=== PATIENT | female | born 1950 | race Caucasian/White ===

== ENCOUNTER 2022-05-16 04:03 | Emergency (ER) | payer MEDICARE, OTHER ==
[2022-05-16 04:13] VITALS: TEMP 98.1
--- NOTE | 2022-05-16 04:41 | XR ---
EXAMINATION TYPE: XR knee limited RT DATE OF EXAM: 05/16/2022 COMPARISON: NONE HISTORY: Swelling TECHNIQUE: 2 views FINDINGS: There is a large knee joint effusion. No fracture seen. There is minor spurring of the medi al femoral and tibial condyles. IMPRESSION: There is large knee joint effusion. No fracture seen.
[2022-05-16] MEDS ORDERED: LIDOCAINE 1% INJ 10MG/ML (30 ML VIAL-PF) SQ ONE (04:51)
[2022-05-16] MEDS ORDERED: KETOROLAC 15 MG/ML 1 ML VIAL IM STA (04:51)
--- NOTE | 2022-05-16 06:28 | ED ---
General Adult HPI - General Source: patient Mode of arrival: wheelchair Limitations: no limitations <Leopoldo Saleem - Last Filed: 05/16/22 06:23> <Gee Jon - Last Filed: 05/16/22 09:42> - General Chief complaint: Extremity Problem,Nontraumatic Stated complaint: R knee pain Time Seen by Provider: 05/16/22 04:27 - History of Present Illness Initial comments: This is a 72-year-old female with a past medical history including CHF and hypertension as well as atrial fibrillation on Xarelto presented for a spo ntaneous right knee effusion and swelling. The patient stated that she did have some minor pain in the right knee prior to going to bed but then woke up with swelling and pain to the right knee unable to cannulate secondary to this pain and swelling. The patient denied any trauma. The patient also denied any fevers and chills and stated that she could not move her leg secondary to pain and swelling. The patient stated that she has never had anything similar to this in the past. The patient denied any other acute pain at this time. (Leopoldo Saleem) - Related Data Allergies Allergy/AdvReac Type Severity Reaction Status Date / Time Penicillins Allergy Unknown Verified 05/16/22 04:08 tramadol Allergy Nausea & Verified 05/16/22 04:08 Vomiting Review of Systems ROS Other: All systems not noted in ROS Statement are negative. <Leopoldo Saleem - Last Filed: 05/16/22 06:23> ROS Other: All systems not noted in ROS Statement are negative. <Gee Jon - Last Filed: 05/16/22 09:42> ROS Statement: Those systems with pertinent positive or pertinent negative responses have been documented in the HPI. Past Medical History Past Medical History: Hypertension Additional Past Medical History / Comment(s): heart failure, sarcoidosis, ALD, Factor 5 History of Any Multi-Drug Resistant Organisms: None Reported Past Surgical History: AICD, Joint Replacement, Orthopedic Surgery Smoking Status: Former smoker Past Alcohol Use History: None Reported Past Drug Use History: None Reported <Leopoldo Saleem - Last Filed: 05/16/22 06:23> General Exam Limitations: no limitations General appearance: alert, in no apparent distress Head exam: Present: atraumatic, normocephalic, normal inspection Eye exam: Present: normal appearance, PERRL Pupils: Present: normal accommodation ENT exam: Present: normal exam, normal oropharynx, mucous membranes moist Neck exam: Present: normal inspection Respiratory exam: Present: normal lung sounds bilaterally Cardiovascular Exam: Present: regular rate, normal rhythm, normal heart sounds GI/Abdominal exam: Present: soft, normal bowel sounds Extremities exam: Present: normal inspection (Normal inspection of the left knee), joint swelling (Joint swelling noted over the right knee without any erythema or induration noted.) Back exam: Present: normal inspection, full ROM Neurological exam: Present: alert, oriented X3, CN II-XII intact Psychiatric exam: Present: normal affect, normal mood Skin exam: Present: warm, dry <Leopoldo Saleem - Last Filed: 05/16/22 06:23> Course <Leopoldo Saleem - Last Filed: 05/16/22 06:23> Vital Signs 05/16/22 04:09 Temperature 98.1 F Pulse Rate 79 Respiratory 16 Rate Blood Pressure 154/112 O2 Sat by Pulse 98 Oximetry - Reevaluation(s) Reevaluation #1: The patient was seen and evaluated initially. X-ray of the right knee was obtained and was interpreted by myself showing large effusion. I did attempt multiple times to drain the fluid blindly however was unsuccessful. I then used the ultrasound and did show no drainable pocket of fluid. Because there was no drainable pocket in the setting of spontaneous swelling of the right knee, a CT was ordered at this time. The patient be sent out to Dr. Jon pending the evaluation of CT for further disposition and management. 05/16/22 06:27 (Leopoldo Saleem) Procedures - Joint Aspiration/Injection Consent Obtained: verbal consent Indications: to relieve pressure/pain Side of Body: right Joint Aspirated: knee Ultrasound Guidance: No (Initially, US was not used as there was a large effusion noted) Skin Prep: sterile prep and drape Local Anesthesia Used: Lidocaine 1% Amount of Anesthesia Used (mLs): 5 Needle Size Used: 22G Syringe Size Used: 10cc Fluid Obtained: bloody (minimal) Total Fluid Obtained (mls): 0 Patient Tolerated Procedure: no complications Complications: other (Patient had multiple times to drain the effusion however was unsuccessful. Ultrasound guidance was then used but showed no drainable pockets) <Leopoldo Saleem - Last Filed: 05/16/22 06:23> Medical Decision Making - Lab Data Result diagrams: 05/16/22 07:23 05/16/22 07:23 <Gee Jon - Last Filed: 05/16/22 09:42> - Medical Decision Making Was pt. sent in by a medical professional or institution (, [facility], [facility], urgent care, hospital, or custodial...) When possible be specific @ -No Did you speak to anyone other than the patient for history (EMS, parent, family, police, friend...)? What history was obtained from this source @ -No Did you review nursing and triage notes (agree or disagree)? Why? @ -I reviewed and agree with nursing and triage notes Were old charts reviewed (outside hosp., previous admission, EMS record, old EKG, old radiological studies, urgent care reports/EKG's, custodial records)? Report findings @ -No old charts were reviewed Differential Diagnosis (chest pain, altered mental status, abdominal pain women, abdominal pain men, vaginal bleeding, weakness, fever, dyspnea, syncope, headache, dizziness, GI bleed, back pain, seizure, CVA, palpatations, mental health)? @ -not applicable EKG interpreted by me (3pts min.). @ -As above X-rays interpreted by me (1pt min.). @ -CT was interpreted by myself. X-ray of the knee showed no fracture however did show an effusion. CT interpreted by me (1pt min.). @ -CT of the knee was interpreted by myself. CT of the knee showed an effusion which was consistent with blood U/S interpreted by me (1pt. min.). @ -None done What testing was considered but not performed or refused? (CT, X-rays, U/S, labs)? Why? @ -None What meds were considered but not given or refused? Why? @ -None Did you discuss the management of the patient with other professionals (professionals i.e. , [facility], [facility] [employer], lab, RT, psych nurse, dialysis social worker, spring winder, teacher, employment security officer, disability case manager)? Give summary @ -Spoke with Dr. Rich about the case he wanted the patient follow-up in the office I then spoke with the patient and they were in agreement Was smoking cessation discussed for >3mins.? @ -No Was critical care preformed (if so, how long)? @ -No Were there social determinants of health that impacted care today? How? (Homelessness, low income, unemployed, alcoholism, drug addiction, transportation, low edu. Level, literacy, decrease access to med. care, fdc, rehab)? @ -No Was there de-escalation of care discussed even if they declined (Discuss DNR or withdrawal of care, Hospice)? DNR status @ -No What co-morbidities impacted this encounter? (DM, HTN, Smoking, COPD, CAD, Cancer, CVA, ARF, Chemo, Hep., AIDS, mental health diagnosis, sleep apnea, morbid obesity)? @ -Patient has a clotting disorder and that is why she is on Xarelto and Xarelto has probably led her to have the spontaneous bleeding in the knee. Was patient admitted / discharged? Hospital course, mention meds given and route, prescriptions, significant lab abnormalities, going to OR and other pertinent info. @ -Patient be discharged home. I spoke with Dr. Rich he wants to see the patient in the office this week family was in agreement that she would beats able to safely get around the home and the patient was in agreement. Undiagnosed new problem with uncertain prognosis? @ -No Drug Therapy requiring intensive monitoring for toxicity (Heparin, Nitro, Insulin, Cardizem)? @ -No Were any procedures done? @ -No Diagnosis/symptom? @ -Knee Acute, or Chronic, or Acute on Chronic? @ -Acute Uncomplicated (without systemic symptoms) or Complicated (systemic symptoms)? @ -Uncomplicated Side effects of treatment? @ -No Exacerbation, Progression, or Severe Exacerbation? @ -No Poses a threat to life or bodily function? How? (Chest pain, [place], [place], pneumonia, PE, COPD, DKA, ARF, appy, cholecystitis, CVA, Diverticulitis, Homicidal, Suicidal, threat to staff... and all critical care pts) @ -No (Gee Jon) - Lab Data Lab Results 05/16/22 05/16/22 Range/Units 07:23 07:23 WBC 7.0 (3.8-10.6) k/uL RBC 5.11 (3.80-5.40) m/uL Hgb 16.0 (11.4-16.0) gm/dL Hct 48.7 H (34.0-46.0) % MCV 95.2 (80.0-100.0) fL MCH 31.3 (25.0-35.0) pg MCHC 32.8 (31.0-37.0) g/dL RDW 13.6 (11.5-15.5) % Plt Count 195 (150-450) k/uL MPV 9.2 Neutrophils % 67 % Lymphocytes % 25 % Monocytes % 4 % Eosinophils % 2 % Basophils % 1 % Neutrophils # 4.7 (1.3-7.7) k/uL Lymphocytes # 1.7 (1.0-4.8) k/uL Monocytes # 0.3 (0-1.0) k/uL Eosinophils # 0.2 (0-0.7) k/uL Basophils # 0.1 (0-0.2) k/uL Hypochromasia Slight Sodium 138 (137-145) mmol/L Potassium 4.7 (3.5-5.1) mmol/L Chloride 107 (98-107) mmol/L Carbon Dioxide 26 (22-30) mmol/L Anion Gap 5 mmol/L BUN 27 H (7-17) mg/dL Creatinine 1.06 H (0.52-1.04) mg/dL Est GFR (CKD-EPI)AfAm 60 (>60 ml/min/1.73 sqM) Est GFR (CKD-EPI)NonAf 52 (>60 ml/min/1.73 sqM) Glucose 95 (74-99) mg/dL Calcium 9.0 (8.4-10.2) mg/dL Magnesium 2.4 H (1.6-2.3) mg/dL Total Bilirubin 0.9 (0.2-1.3) mg/dL AST 58 H (14-36) U/L ALT 48 H (4-34) U/L Alkaline Phosphatase 188 H (38-126) U/L Total Protein 7.4 (6.3-8.2) g/dL Albumin 4.2 (3.5-5.0) g/dL Disposition <Leopoldo Saleem - Last Filed: 05/16/22 06:23> Is patient prescribed a controlled substance at d/c from ED?: No Time of Disposition: 09:41 <Gee Jon - Last Filed: 05/16/22 09:42> Clinical Impression: Knee effusion, left Disposition: HOME SELF-CARE Condition: Good Instructions (If sedation given, give patient instructions): Swollen Knee Joint (ED) Additional Instructions: Patient should use a walker to get around. And if necessary assistance from family members Referrals: Noe Rich MD [STAFF PHYSICIAN] - 1-2 days
[2022-05-16 07:29] LABS: Basophils # (A) 0.1 k/uL (0-0.2); Basophils % (A) 1 %; Eosinophils # (A) 0.2 k/uL (0-0.7); Eosinophils % (A) 2 %; HCT 48.7 % (34.0-46.0); Hypochromasia Slight; Lymphocytes # (A) 1.7 k/uL (1.0-4.8); Lymphocytes % (A) 25 %; MCH 31.3 pg (25.0-35.0); MCHC 32.8 g/dL (31.0-37.0); MCV 95.2 fL (80.0-100.0); Mean Platelet Volume 9.2; Monocytes # (A) 0.3 k/uL (0-1.0); Monocytes % (A) 4 %; Neutrophils # (A) 4.7 k/uL (1.3-7.7); Neutrophils % (A) 67 %; Platelet Count 195 k/uL (150-450); RBC 5.11 m/uL (3.80-5.40); RDW 13.6 % (11.5-15.5)
[2022-05-16 07:41] LABS: Albumin 4.2 g/dL (3.5-5.0); Total Bilirubin 0.9 mg/dL (0.2-1.3); Total Protein 7.4 g/dL (6.3-8.2)
[2022-05-16 07:43] LABS: Potassium 4.7 mmol/L (3.5-5.1)
[2022-05-16 07:44] LABS: Magnesium 2.4 mg/dL (1.6-2.3)
--- NOTE | 2022-05-16 08:22 | CT ---
EXAMINATION TYPE: CT knee RT wo/w con CT DLP: 280.6 mGycm, Automated exposure control for dose reduction was used. DATE OF EXAM: 05/16/2022 8:10 AM COMPARISON: Extremity radiograph same day. CLINICAL INDICATION:Female, 72 years old with history of Swelling, effusion without drainable fluid o n US, Swelling, Effusion without drainable fluid on US TECHNIQUE: Axial images were obtained of the right knee . Additional coronal and sagittal reformatte d images and soft tissue and bone window were obtained for review. Contrast used:100 ml mL of Isovue 300 without and with IV Contrast, Oral contrast used: None FINDINGS: High attenuating joint effusion which is moderate to large is present. There is few foci of gas seen along the right lateral distal thigh just above the patella. No evidence of fracture. There is areas of suspected full-thickness cartilage loss with subchondral cystic changes and erosive appe arance of the medial patellar facet. No joint dislocation. IMPRESSION: 1. Moderate to large right knee joint effusion with high density concerning for hemarthrosis. Superi mposed infection not entirely excluded correlate with serum markers and clinical presentation. 2. Moderate to severe osteoarthrosis with areas of full-thickness cartilage loss with subchondral cy stic changes. Findings worse in the medial patellar facet. Consider complete evaluation with MRI 3. No evidence of fracture. 4. Few foci of gas seen along the right lateral thigh near the superior patella correlate with recen t intervention. No organizing fluid collection to suggest abscess.
[2022-05-16 10:50] VITALS: BP 156/98; PULSE 69; RESP 18
== END 2022-05-16 10:50 | disposition home or self-care (01) ==
LOC: EC 04:03
DX: M25.461 Effusion, right knee (principal); I10 Essential (primary) hypertension; Z88.0 Allergy status to penicillin; Z87.891 Personal history of nicotine dependence
CPT/HCPCS: 36415; 80053; 83735; 85025; 73560; 73702; 20610; 99284; 96372; J2001; J1885; Q9967

== ENCOUNTER 2022-05-18 08:13 | Emergency (ER) | payer MEDICARE, OTHER ==
[2022-05-18 08:21] VITALS: RESP 18
[2022-05-18] MEDS ORDERED: carvediloL 3.125 MG TAB PO STA (08:43)
[2022-05-18] MEDS ORDERED: fentaNYL (PF) 50 MCG/ML 2 ML AMP IM STA (08:44)
--- NOTE | 2022-05-18 08:47 | ED ---
Lower Extremity Injury HPI - General Chief Complaint: Extremity Injury, Lower Stated Complaint: knee pain Time Seen by Provider: 05/18/22 08:26 Source: patient, family, RN notes reviewed, old records reviewed Mode of arrival: EMS Limitations: no limitations - History of Present Illness Initial Comments: Patient was seen yesterday for effusion of the right knee. Multiple attempts to drain unsuccessful in the ER. She did see Dr. Puentes yesterday afternoon at 3:00 who drained multiple vials of blood from knee with relief of pain. Patient states this morning increased pain and swelling which prompted her to return to the emergency room. Denies any fevers. MD Complaint: knee injury (pain) -: days(s) (2) Severity scale (1-10): 10 Improves With: other (drainage) - Related Data Allergies Allergy/AdvReac Type Severity Reaction Status Date / Time Penicillins Allergy Unknown Verified 05/18/22 08:21 tramadol Allergy Nausea & Verified 05/18/22 08:21 Vomiting Review of Systems ROS Statement: Those systems with pertinent positive or pertinent negative responses have been documented in the HPI. ROS Other: All systems not noted in ROS Statement are negative. Past Medical History Past Medical History: Hypertension Additional Past Medical History / Comment(s): heart failure, sarcoidosis, ALD, Factor 5 History of Any Multi-Drug Resistant Organisms: None Reported Past Surgical History: AICD, Joint Replacement, Orthopedic Surgery Smoking Status: Former smoker Past Alcohol Use History: None Reported Past Drug Use History: None Reported General Exam Limitations: no limitations General appearance: alert, in no apparent distress Respiratory exam: Absent: respiratory distress, accessory muscle use Cardiovascular Exam: Present: regular rate Right Knee exam: Present: tenderness, swelling, effusion Neurovascular tendon exam: Present: no vascular compromise. Absent: abnormal cap refill, extremity cold to touch, pallor, foot drop Neurological exam: Present: alert, oriented X3 Psychiatric exam: Present: normal affect, normal mood Skin exam: Present: warm, dry, normal color. Absent: cyanosis, diaphoretic, petechiae, pallor Course Vital Signs 05/18/22 05/18/22 08:17 11:49 Temperature 97.3 F L 97.4 F L Pulse Rate 82 72 Respiratory 18 18 Rate Blood Pressure 157/122 148/97 O2 Sat by Pulse 98 98 Oximetry - Reevaluation(s) Reevaluation #1: 05/18/22 09:55 Spoke with Fl[facility] from [facility] who spoke with Dr. Puentes, he recommended Waylon wrap and crutches and follow up in the office. If patient requests can follow-up in the office today. Time: 09:54 Medical Decision Making - Medical Decision Making I did speak with ortho who recommended Waylon wrap and follow up with Dr. Puentes in the office. Patient did make an appointment for today at 2:45. No evidence of erythema. No fevers. No concern for septic joint. She was given pain medication and directed to rest ice and elevate. She was offered crutches and states that she does have a walker that she uses the unable to use crutches due to balance issues. Was pt. sent in by a medical professional or institution? @ -No Did you speak to anyone other than the patient for history? @ -No Did you review nursing and triage notes? @ -Yes I agree Were old charts reviewed? @ -No Differential Diagnosis? @ -Joint effusion, septic joint, contusion, lisa-arthrosis What testing was considered but not performed? (CT, X-rays, U/S, labs)? Why? @ X-rays were considered performed yesterday along with CT What meds were considered but not given? Why? @ -Antibiotics were considered however there is a low concern for septic joint Did you discuss the management of the patient with other professionals? @ -Orthopedic [facility] Ale[facility] Did you reconcile home meds? @ -No Was smoking cessation discussed for >3mins.? @ -No Was critical care preformed (if so, how long)? @ -No Were there social determinants of health that impacted care today? How? (Homelessness, low income, unemployed, alcoholism, drug addiction, transportation, low edu. Level, literacy, decrease access to med. care, long term, rehab)? @ -No Was there de-escalation of care discussed even if they declined? (Discuss DNR or withdrawal of care, Hospice)? @ -No What co-morbidities impacted this encounter? (DM, HTN, Smoking, COPD, CAD, Cancer, CVA, Hep., AIDS, mental health diagnosis, sleep apnea, morbid obesity)? @ -Hypertension, factor V leiden, sarcoidosis Was patient admitted / discharged? @ -Discharged Undiagnosed new problem with uncertain prognosis? @ -[none] Drug Therapy requiring intensive monitoring for toxicity (Heparin, Nitro, Insulin, Cardizem)? @ -[none] Were any procedures done? @ -No Diagnosis/symptom? @ -Right knee effusion Acute, or Chronic, or Acute on Chronic? @ -Acute Uncomplicated (without systemic symptoms) or Complicated (systemic symptoms)? @ -[default] Side effects of treatment? @ -[none] Exacerbation, Progression, or Severe Exacerbation] @ -[no] Poses a threat to life or bodily function? @ -[no] - EKG Data EKG shows normal: sinus rhythm (Ventricular rate 68, MD interval 0.177, QRS 0.83, QTC 0.401; normal axis; compared to old EKG 03/05/2021) Disposition Clinical Impression: Knee effusion, right Disposition: HOME SELF-CARE Condition: Good Instructions (If sedation given, give patient instructions): Knee Pain (ED) Additional Instructions: Wear Waylon wrap as applied. Use crutches or a walker. Follow-up with Dr. Puentes today as scheduled. Tylenol and ice for pain. Return to the emergency room with any new or concerning symptoms including increased pain, fevers or redness. Is patient prescribed a controlled substance at d/c from ED?: No Referrals: Mario Irvin DO [Primary Care Provider] - 1-2 days Josué Puentes MD [Medical Doctor] - 1-2 days Time of Disposition: 10:04
[2022-05-18] MEDS ORDERED: ONDANSETRON ODT 4 MG TAB PO STA (08:56)
[2022-05-18] MEDS ORDERED: ONDANSETRON 4 MG/2 ML VIAL IVP STA (09:16)
[2022-05-18] MEDS ORDERED: ACET/COD 300 MG/30 MG STARTER PACK 6 TAB BTL PO STA (10:29)
[2022-05-18] MEDS ORDERED: METOCLOPRAMIDE 5 MG/ML 2 ML VIAL IVP STA (10:30)
[2022-05-18 11:49] VITALS: BP 148/97; PULSE 72; TEMP 97.4
== END 2022-05-18 11:50 | disposition home or self-care (01) ==
LOC: EC 08:13
DX: M25.461 Effusion, right knee (principal); I10 Essential (primary) hypertension; Z87.891 Personal history of nicotine dependence; Z88.0 Allergy status to penicillin; Z88.6 Allergy status to analgesic agent
CPT/HCPCS: 99283 ×2; 96374 ×2; 96375 ×2; 96372 ×2; J2765; J2405; J3010